=== PATIENT | female | born 1980 | race Caucasian/White ===

== ENCOUNTER 2023-04-14 18:00 | Emergency (ER) | payer BC, SELFPAY ==
[2023-04-14 18:04] VITALS: BP 185/146
[2023-04-14 18:07] VITALS: BMI 26.5
--- NOTE | 2023-04-14 18:48 | ED.GENMED ---
History of Present Illness
General
Chief Complaint: Eye Problems
Source: patient
Time Seen by Provider: 04/14/23 18:22
Travel History
Have you had any contact with someone who has COVID-19?: No
Do you have any symptoms of coronavirus? Fever > 100 degrees, chills, cough, shortness of breath, sore throat, loss of taste or smell, muscle aches, or headache?: No
History of Present Illness
History of Present Illness:
42-year-old female presents to the emergency room complaining of redness and discomfort in bilateral eyes. Symptoms been present for the past 4 to 5 days. No fever, chills, sore throat or cough. Patient denies chest pain or shortness of breath.
Past History
Past History
ED Past Medical History: None
ED Past Surgical History: Cardiac and Cholecystectomy
Social History
Tobacco: Non-smoker
Alcohol: None
Drug: None
Personal:
Living: with family
Employment: Employed
Family History
Family History: Other (Noncontributory)
Phy Exam
Physical Exam
Physical Exam:
General: Awake, Alert, Oriented X3. No acute distress.
Vitals: unremarkable
Head: Atraumatic
Eyes: Pupils equal, EOMI, mild injection bilaterally, anterior chamber appears normal slit-lamp to exam. No fluorescein uptake.
Neuro: Nonfocal
Skin: Warm, dry, no rash
Extremities: pulses equal b/l, no edema
Course
Vital Signs
Initial and Last Documented VS:
Initial Vital Signs
Temp Pulse Resp BP Pulse Ox
98.8 F 99 20 185/146 97
04/14/23 18:04 04/14/23 18:04 04/14/23 18:04 04/14/23 18:04 04/14/23 18:04
Last Documented Vital Signs
Temp Pulse Resp BP Pulse Ox
98.8 F 99 20 185/146 97
04/14/23 18:04 04/14/23 18:04 04/14/23 18:04 04/14/23 18:04 04/14/23 18:04
MDM/Problems Addressed
Differential Diagnosis Includes:
Viral conjunctivitis, bacterial conjunctivitis, chemical
MDM/Problems Addressed:
Patient has normal exam essentially other than increased injection. Will cover with polymyxin for few days. Patient's blood pressure noted to be quite high. Recommend follow-up with her primary care provider. Patient states has been using
Claritin-D which she knows can increase her blood pressure.
*Pulse Oximetry
Patient hypoxic: no
*Critical Care Note
Total Time (30-74mins, 75-104mins- exclusive of procedures): Not Applicable
ED Attending Note
-
Portions of this chart may have been created with voice recognition software.� Occasional wrong word or��sound alike� substitutions may have occurred due to the inherent limitations of voice recognition software.
Discharge Plan
Departure
Patient Disposition: Home (Routine Discharge)
Date of Disposition: 04/14/23
Time of Disposition: 18:48
Patient with high blood pressure during this ER visit?: Yes
Condition: Good
Discharge Problem:
Conjunctivitis
Instructions: Conjunctivitis ([place]) (DC), BLOOD PRESSURE
Prescriptions:
New
polymyxin B sulf-trimethoprim 10,000 unit- 1 mg/mL drops
1 drp BOTH EYES QID 5 Days Qty: 10 0RF
No Action
loratadine-pseudoephedrine 240 MG/10 MG tablet extended release 24 hr
1 mg PO DAILY
oxycodone-acetaminophen 5 MG/325 MG tablet
1 tab PO Q4HPRN PRN (Reason: moderate to severe pain) Qty: 15 0RF
ondansetron 4 MG tablet,disintegrating
4 mg PO TIDPRN PRN (Reason: nausea) Qty: 7 0RF
Referrals:
Tammie Cheng CRNP [Family Provider] -
Interventions
Interventions:
*Risk Screen - Suicide Last Done: 04/14/23 18:07
*Neglect/Abuse Screening Last Done: 04/14/23 18:07
*ED COVID-19 Vaccine History Last Done: 04/14/23 18:07
[2023-04-14 18:54] VITALS: BP 179/104
== END 2023-04-14 19:42 | disposition home or self-care (01) ==
LOC: EMR 18:00
PROVIDERS: EMERGENCY PHYSICIAN Emergency Medicine; FAMILY PHYSICIAN Nurse Practitioner Family
DX: B30.9 Viral conjunctivitis, unspecified (principal); R03.0 Elevated blood-pressure reading, without diagnosis of hypertension
CPT/HCPCS: 99283

== ENCOUNTER 2023-04-18 18:56 | Inpatient (IN) | payer BC, SELFPAY ==
[2023-04-18] VITALS (11 sets, daily range): BP systolic 108–216; BP diastolic 70–135; BMI 26.0
[2023-04-18 17:30] LABS: % Eosinophils 1.4 % (0-6); % Immature Granulocytes 0.4 % (0-0.5); % Lymphocytes 24.1 % (20.5-51.1); % Monocytes 5.8 % (1.7-9.3); % Neutrophils 67.3 % (42.2-75.2); Absolute Basophils 0.1 10^3/uL (0-0.2); Absolute Eosinophils 0.1 10^3/uL (0-0.7); Absolute Lymphocytes 1.8 10^3/uL (1.2-3.4); Absolute Monocytes 0.4 10^3/uL (0.1-0.6); Absolute Neutrophils 4.9 10^3/uL (1.4-6.5); Hematocrit 44.1 % (37.0-47.0); Hemoglobin 14.9 g/dL (12.0-16.0); Mean Corp Hgb Conc. 33.8 g/dL (33.0-37.0); Mean Corpuscular Hgb 25.8 pg (27.0-31.0); Mean Corpuscular Volume 76.4 fL (81.0-99.0); Mean Platelet Volume 8.6 fL (7.4-10.4); Nucleated Red Blood Cells % 0 %; Platelet Count 297 10^3/uL (130-400); Red Blood Cell Count 5.77 10^6/uL (4.20-5.40); Red Cell Dist. Width 13.8 % (11.5-14.5); White Blood Cell Count 7.3 10^3/uL (4.8-10.8)
[2023-04-18 17:44] LABS: HCG, Serum Qualitative Screen Negative
[2023-04-18 17:49] LABS: ALT (SGPT) 16 U/L (0-35); AST (SGOT) 22 U/L (14-36); Albumin 4.4 g/dl (3.5-5.0); Alkaline Phosphatase 95 U/L (38-126); Blood Urea Nitrogen 14 mg/dl (7-17); Calcium 9.8 mg/dl (8.4-10.2); Carbon Dioxide 26 mmol/L (22-30); Chloride 99 mmol/L (98-107); Glucose 122 mg/dl (70-99); Potassium 3.8 mmol/L (3.5-5.1); Sodium 133 mmol/L (135-145); Total Bilirubin 0.7 mg/dl (0.2-1.3); Total Protein 7.2 g/dl (6.3-8.2); eGFR > 60.00
--- NOTE | 2023-04-18 17:49 | ED.GENMED ---
History of Present Illness
General
Chief Complaint: Heart Rate Problem
Source: patient
Exam Limitations: none
Time Seen by Provider: 04/18/23 17:08
Travel History
Have you had any contact with someone who has COVID-19?: No
Do you have any symptoms of coronavirus? Fever > 100 degrees, chills, cough, shortness of breath, sore throat, loss of taste or smell, muscle aches, or headache?: No
History of Present Illness
History of Present Illness:
42-year-old female complaining of heart pounding racing. Started today. No neurologic symptoms no headache no chest pain or shortness of breath. Started amlodipine yesterday.
Past History
Past History
ED Past Medical History: HTN
ED Past Surgical History: Cardiac and Cholecystectomy
Social History
Tobacco: Non-smoker
Alcohol: None
Drug: None
Personal:
Living: with family
Employment: Employed
Family History
Family History: Other (Noncontributory)
Review of Systems
Review of Systems
All Other Systems: Not applicable
Constitutional: Denies fever
Respiratory: Reports no symptoms
Cardiac: Reports no symptoms
ABD/GI: Reports no symptoms
Phy Exam
Physical Exam
Physical Exam:
GENERAL: Alert and oriented in no apparent distress
EYE: Orbits normal.
NECK: Supple, no thyroid palpable
CARDIAC: Tachycardic and regular no murmur
LUNGS: Clear breath sounds,normal
ABDOMEN: Soft, without focal tenderness or distention
NEUROLOGICAL: Alert and oriented , grossly non-focal
SKIN: Warm and dry, no rash or lesion, no discoloration, skin intact.
MUSCULOSKELETAL: No edema,no deformity.Good color
PSYCH: Normal and appropriate interaction.
Course
Orders/Labs/Results
Orders:
Orders
02/19/24 Dinner
Regular
At Your Request: Full Participation
04/18/23 16:50
Electrocardiogram (*1) Urgent
Reason for Study: Tachycardia
EKG- Treatment ONCE
04/18/23 17:18
Cardiac Monitoring- Treatment ONCE
Test Result ONCE
04/18/23 17:22
Complete Blood Count/With Diff Urgent
Comprehensive Metabolic Panel Urgent
D-Dimer Urgent
HCG, Serum Qualitative Screen Urgent
TSH Reflex To Free T4 Urgent
Troponin I Urgent
04/18/23 17:49
Labetalol HCl [Trandate] 10 mg IV NOW STA
04/18/23 18:21
Urine, Metanephrines [Metanephrines Fractionated, Ur] [S] Routine
US Renal Artery Routine
Comment:
Reason For Exam: HTN urgency
04/18/23 18:23
Urine Drug Abuse Screen Routine
04/18/23 18:28
Aldosterone/Renin Act Ratio [S] Routine
Catecholamine Fraction Plasma [S] Routine
Metanephrines, Plasma (free) [S] Routine
04/18/23 18:32
Labetalol HCl [Trandate] 20 mg IV NOW STA
04/18/23 18:40
Amlodipine [Norvasc] 5 mg PO NOW STA
04/18/23 18:41
Admit/Transfer Patient As Directed
Co-Sign Provider:
Level of Care: Inpatient admission
Assign to:: Telemetry
Physician / Group: herb gonzales
Diagnosis: htn urgency
Reason for Telemetry: Arrhythmia
Date to Stop Telemetry: 04/21/23
Time to Stop Telemetry: 11:00
Reason for Hospitalization: htn urgency
Expected length of stay greater than two midnights?: Yes
ELOS- Estimated Length of Stay in days: 3
I certify the patient meets the requirements for IP care: Yes
HydrALAZINE [Apresoline] 10 mg IV Q6HPRN PRN
04/18/23 18:42
Code Status As Directed
Resuscitation Status: Full Code
04/18/23 19:35
Artificial Tears (Pf) [Refresh Eye Drops (Pf)] 1 drops BOTH EYES DAILYPRN PRN
04/18/23 19:42
Acetaminophen [Tylenol] 650 mg PO Q4HPRN PRN
04/18/23 19:42
Activity As Directed
Activity Level: As Tolerated
Pneumatic Compression Sleeves As Directed
Type: Knee high
Vital Signs As Directed
Frequency: Per unit guidelines
Ot Eval And Treat Routine
Pt Eval And Treat Routine
Activity Level: As Tolerated
DX Deep Vein Thrombosis Video Routine
04/19/23 06:00
Basic Metabolic Panel IN AM
Cardiovascular Evaluation IN AM
Comprehensive Metabolic Panel IN AM
04/19/23 08:00
Catecholamine Fraction Free, Urine [Catecholamine Fraction Free,Ur] [S] Routine
Amlodipine [Norvasc] 10 mg PO DAILY
04/21/23 11:00
DC Protocol for Telemetry ONCE
Abnormal Lab Results
04/18/23
17:22
RBC 5.77 H 10^6/uL
(4.20-5.40)
MCV 76.4 L fL
(81.0-99.0)
MCH 25.8 L pg
(27.0-31.0)
Sodium 133 L mmol/L
(135-145)
Glucose 122 H mg/dl
(70-99)
04/18/23 17:22
04/18/23 17:22
Vital Signs
Initial and Last Documented VS:
Initial Vital Signs
Temp Pulse Resp BP Pulse Ox
98.1 F 143 20 216/135 97
04/18/23 16:52 04/18/23 16:52 04/18/23 16:52 04/18/23 16:52 04/18/23 16:52
Last Documented Vital Signs
Temp Pulse Resp BP Pulse Ox
98.1 F 92 18 193/126 99
04/18/23 19:42 04/18/23 19:42 04/18/23 19:42 04/18/23 19:42 04/18/23 19:42
*Pulse Oximetry
Patient hypoxic: no
*EKG
Interpreted by ED Provider?: Yes
Interpretation: abnormal
Comparison EKG: no comparison EKG present
Heart Rate: 126
Rate: tachycardiac
Rhythm: sinus
[place]: normal axis
Interval: normal interval
QRS Pattern: normal QRS
Ischemia: no ischemia
*Grocery Shopper Interpretation
Rate: tachycardiac
Interpretation: abnormal
Heart Rate: 122
Rhythm: sinus
*Critical Care Note
Total Time (30-74mins, 75-104mins- exclusive of procedures): 15
Update Note
Update Note:
1750...Blood pressure 220/135. Still tacky at 110. Will give a dose of labetalol
No serious etiology found for patient's significant hypertension.
ED Attending Note
-
Portions of this chart may have been created with voice recognition software.� Occasional wrong word or��sound alike� substitutions may have occurred due to the inherent limitations of voice recognition software.
Discharge Plan
Departure
Patient Disposition: Admit
Date of Disposition: 04/18/23
Time of Disposition: 18:27
Presentation/result/management discussed w/ accepting MD/DO: Hospitalist
Discharge Problem:
Hypertensive urgency
Interventions
Interventions:
*Risk Screen - Suicide Last Done: 04/18/23 16:52
*General Assessment Last Done: 04/18/23 16:52
*Neglect/Abuse Screening Last Done: 04/18/23 16:52
ED- Fall Risk Assessment Last Done: 04/18/23 19:27
*ED COVID-19 Vaccine History Last Done: 04/18/23 16:52
*Nursing Disposition Last Done: 04/18/23 19:27
ED- Cardiac Assessment Last Done: 04/18/23 17:25
ED- Pulmonary Assessment Last Done: 04/18/23 17:25
Discharge Date and Time
Discharge Date/Time: 04/18/23 19:28
[2023-04-18 17:54] LABS: Troponin I < 0.012 ng/ml
[2023-04-18 17:57] LABS: D-Dimer < 0.27 ug/mlFEU (0.00-0.50)
[2023-04-18] MEDS: TRANDATE 10 MG IV (18:11)
[2023-04-18 18:18] LABS: TSH Reflex To Free T4 2.02 uIU/ml (0.47-4.68)
--- NOTE | 2023-04-18 18:34 | HPS.HSE ---
Addendum entered and electronically signed by Brianna Helms MD 04/18/23 18:54:
I saw and examined the patient.
The CESSATION SYSTEMS OUTREACH SPECIALIST's note was reviewed and I agree with the note.
Comment:
42-year-old female, past medical history of ASD status post surgery, stroke due to ASD, presented with palpitation and flushing while out shopping. Patient was started with Norvasc 5 mg 2 days prior to admission for hypertension.
A/P:
# Hypertensive urgency
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
s/p IV labetalol in ER
Cont Norvasc, increase to 10 mg daily
Check UDS
Check Renal artery US
Check renin/aldosterone level, urine and plasma metanephrine
Check echo
IV hydralazine 10 mg PRN for SBP >160
# Atrial septal defect with repair 2005 after CVA at [facility]
2D echo
# Seasonal allergies
Hold Claritin-D
DVT prophylaxis: SCDs
Full code
Original Note:
Family Physician
-
Family Physician: Rehan Taylor MD
Chief Complaint
-
Flushed sensation, heart pounding, hypertension
History of Present Illness
42-year-old female who reports she was at [facility] today standing in line when she felt flushed then felt her heart pounding and racing. She denies any headache, blurred vision, chest pain, shortness of breath, cough, abdominal pain, nausea, vomiting,
diarrhea, dizziness, fever, chills, recent illness. She does report she was diagnosed with hypertension 2 days ago and started on amlodipine. She did not miss any doses. She reports she drinks 1 caffeinated drink a week denies any drug use or
smoking. She has past medical history of atrial septal defect with a stroke in 2005 and atrial septal closure December 2005 at [facility], seasonal allergies.
Medical History
Past Medical History
Past Medical History: Reports Other
Additional Past Medical History:
HTN�Dx 04/15/2023
atrial septal defect with a stroke in 2005
atrial septal closure December 2005 at [facility]
seasonal allergies.
Past Surgical History: Reports Other
Additional Past Surgical History:
section x 2
cholecystectomy
tonsillectomy
Social History
Tobacco: Non-smoker
Alcohol: None
Drug: None
Personal:
Living: With Family
Employment: Employed
Family History
Family History: Other (Mother HTN, father CKD stage II, HTN, COPD, CHF)
Allergies / Home Medications
Allergies reflects when Allergies were last updated in [facility].
Home Medications with original date entered in [facility]
Allergy/Medication List:
No known drug allergies
Amlodipine 5 mg daily
Claritin-D once daily
Review of Systems
-
History Source: Patient
A 12 point ROS was completed and negative except as noted: Yes
Constitutional: Denies Fever, Fatigue or Chills
EENT: Denies Sore Throat or Runny Nose
Respiratory: Denies Cough or Trouble Breathing
Cardiac: Reports Palpitations and Other (Flushed sensation); Denies Chest Pain, Diaphoresis or Syncope
Abdomen/GI: Denies Abdominal Pain, Nausea, Vomiting, Diarrhea, Constipated, Bloody Stools or Black Stools
: Denies Dysuria, Frequency, Flank Pain, Incontinence, Difficulty Voiding or Urgency
Musculoskeletal: Denies Joint Pain or Edema
Skin: Denies Itching or Rash
Neurological: Denies Dizzy, Headache, Weakness or Numbness
Endocrine: Reports No Symptoms
Hematologic/Lymphatic: Reports No Symptoms
Psych: Reports Calm
Physical Exam
Vital Signs
Vital Signs
Temp Pulse Resp BP Pulse Ox
98.1 F 99 15 203/130 100
04/18/23 16:52 04/18/23 18:15 04/18/23 18:15 04/18/23 18:00 04/18/23 18:15
Physical Exam
General: Well Developed, Well Nourished, No Apparent Distress, Comfortable and Conversant; No Pain, Fever or Chills
HEENT: NormoCephalic, Anicteric, PERRLA, No Ptosis and Neck Nontender; No Nodules
Respiratory: Clear; No Wheezes, Rales or Rhonchi
Cardiac: S1/S2 and Regular Rhythm; No Tachycardia, Murmur, Rub, Gallop, Peripheral Edema, JVD or Carotid Bruits
Breast: Deferred by me
GI: Soft, Non Tender, Non Distended, Normal Bowel Sounds and No Hepatosplenomegaly
Rectal: Deferred by Provider
Genito-urinary: Deferred by me
Musculoskeletal: No Clubbing, No Cyanosis and No Edema
Skin: Warm and Dry; No Rash or Jaundice
Neuro: AO x 3, No Motor Deficits, Nonfocal/grossly intact, Cranial Nerves Intact and No Sensory Deficits; No Slurred Speech, Facial Droop, Tremors or Sedated
Psych: Calm
Laboratory Results
-
04/18/23 17:22
04/18/23 17:22
Laboratory Results
Total Bilirubin 0.7 mg/dl (0.2-1.3) 04/18/23 17:22
AST 22 U/L (14-36) 04/18/23 17:22
ALT 16 U/L (0-35) 04/18/23 17:22
Alkaline Phosphatase 95 U/L (38-126) 04/18/23 17:22
Troponin I < 0.012 ng/ml 04/18/23 17:22
Impression/Plan
-
Impression/plan:
Admit to telemetry
#Hypertensive urgency
#Recent HTN Dx 2 days ago started amlodipine
216/135
-IV labetalol 10 mg given in ER
-Check UDS
- check Renal u/s
-Give additional Norvasc 5 mg now
- Start norvasc at 10 mg daily Vs prior 5 mg
-iv hydralazine prn 10 mg SBP>160
#Atrial septal defect with repair 2005 after CVA at [facility]
-Check 2 decho
#Seasonal allergies
-Hold Claritin-D
DVT prophylaxis
SCDs
Full code
[2023-04-18] MEDS: TRANDATE 20 MG IV (18:39)
[2023-04-18] MEDS: NORVASC 5 MG PO (20:03)
--- NOTE | 2023-04-18 20:30 | PTCARENOTE ---
Received patient from ED into 2138. Patient ambulatory. AAOx3 - answered all admission questions. BP 193/126 HR 92. Scheduled Norvasc 10mg ordered and given. Reports feeling like 'a brick on my head' after taking Norvasc yesterday 04/17 (according to
pt started Norvasc yesterday). LYE BOILER aware. Patient asymptomatic, reports no pain, and is resting comfortably in bed.
[2023-04-18] MEDS: APRESOLINE 10 MG IV (21:57)
--- NOTE | 2023-04-19 | PTCARENOTE ---
Patient BP on arrival to unit at about 1999, 193/126. Scheduled Norvasc 10mg PO ordered and given. Recheck of BP 164/108. PRN dose of IV 10mg hydralazine given. Recheck BP of 108/70. After walking to the bathroom, patient reports feeling
lightheaded, N/V, and 'sweaty without sweating.' FLAP MAKER aware. BP 116/80. Only felt this way for a few minutes before pt stated it began to pass. Patient resting comfortably in bed, safe environment maintained, call hurley within reach.
[2023-04-19 03:41] VITALS: BP 145/90
[2023-04-19 05:24] LABS: ALT (SGPT) 17 U/L (0-35); AST (SGOT) 23 U/L (14-36); Albumin 4.3 g/dl (3.5-5.0); Alkaline Phosphatase 107 U/L (38-126); Blood Urea Nitrogen 12 mg/dl (7-17); Calcium 9.2 mg/dl (8.4-10.2); Carbon Dioxide 21 mmol/L (22-30); Chloride 105 mmol/L (98-107); Estimated Creatinine Clearance 71 ml/min; Glucose 116 mg/dl (70-99); HDL Cholesterol 69 mg/dl; LDL Cholesterol, Calculated 145 mg/dl; Potassium 4.2 mmol/L (3.5-5.1); Sodium 134 mmol/L (135-145); Total Bilirubin 0.7 mg/dl (0.2-1.3); Total Cholesterol 228 mg/dl (50-199); Triglyceride 71 mg/dl (10-149); Very Low Density Lipoprotein 14 mg/dl (0-30); eGFR > 60.00
[2023-04-19 07:09] VITALS: BP 139/93
[2023-04-19] MEDS: NORVASC 10 MG PO (08:58)
--- NOTE | 2023-04-19 09:33 | PTOTSP ---
Therapist spoke with the patient, who noted there have been no changes in her mobility (was out shopping when symptoms started) and has remained independent, PT evaluation not warranted. Patient is aware our services are available if needs/changes
occur. PT will sign off at this time.
[2023-04-19 11:09] LABS: Amphetamines Negative (Negative); Barbiturates Negative (Negative); Benzodiazepines Negative (Negative); Buprenorphine Negative (Negative); Cocaine Negative (Negative); Marijuana Negative (Negative); Methadone Negative (Negative); Methamphetamines Negative (Negative); Opiates Negative (Negative); Phencyclidine Negative (Negative); Tricyclic Antidepressants Negative (Negative)
[2023-04-19 11:20] VITALS: BP 159/99
--- NOTE | 2023-04-19 11:41 | W.PN.HOSP.TC ---
Addendum entered and electronically signed by Brianna Helms MD 04/19/23 13:18:
Total DC time 35 minutes
Original Note:
Today's Communication/Plan
-
see A/P
Assessment / Plan
Assessment / Plan
HPI: 42-year-old female, past medical history of ASD status post surgery, stroke due to ASD, presented with palpitation and flushing while out shopping.� Patient was started with Norvasc 5 mg 2 days prior to admission for hypertension.
A/P:
# Hypertensive urgency
s/p IV labetalol in ER
cont TASSEL MAKER Norvasc change to 10 mg daily, add hydralazine 10 mg for SBP > 160
UDS negative
TSH WNL at 2.02
Renal artery US neg for renal arterial stenosis on either side.
Follow renin/aldosterone level, urine and plasma metanephrine, catecholamine results with PCP outpt
Echo unrevealing: Normal left ventricular systolic function. EF 65-70%. Normal diastolic function.�No significant valvular pathology
IV hydralazine 10 mg PRN for SBP >160
# Atrial septal defect with repair 2005 after CVA at [facility]
2D echo as above
# Seasonal allergies
Hold Claritin-D
DVT prophylaxis: SCDs
Full code
DW mother at bedside
Anticipated Discharge: Today
Subjective/Interval History
-
Date of Service: April 19, 2023
Objective Data
-
Labs:
Laboratory Results
04/19/23
04:33
Sodium 134 L
Potassium 4.2
Chloride 105
Carbon Dioxide 21 L
BUN 12
Creatinine 0.8
Glucose 116 H
Calcium 9.2
Total Bilirubin 0.7
AST 23
ALT 17
Alkaline Phosphatase 107
Vital Signs:
Vital Signs
Temp Pulse Resp BP Pulse Ox
36.8 C 98 18 139/93 98
04/19/23 07:09 04/19/23 08:58 04/19/23 07:09 04/19/23 08:58 04/19/23 10:02
I&O
04/18/23 04/19/23 04/20/23
06:59 06:59 06:59
Intake Total 720 / 720
Balance 720 / 720
Review of Systems
-
All other systems: Reviewed and negative
Physical Exam
-
General: Well Developed, Well Nourished, No Apparent Distress, Comfortable and Conversant; Negative Respiratory Distress
HEENT: Normocephalic, Atraumatic, Nose Appears Normal and Ears Appear Normal; Negative Oxygen
Respiratory: Clear to Auscultation and Non Labored Respirations; Negative Accessory Resp Muscle Use
Cardiac: Regular Rhythm and S1/S2
GI: Soft, Nontender, Nondistended and Normal Bowel Sounds
Skin: Warm and Dry
Neuro: Awake, Alert, Oriented, AO x 3 and Nonfocal/Grossly Intact
Psych: Calm and Intact Judgement/Insight
Data Reviewed
-
Ultrasound: Report Reviewed by me, Discussed with Patient and Discussed with Family
Medical Tests (Nuc Med, Echo etc): Report Reviewed by me (echo), Discussed with Patient (echo) and Discussed with Family
Labs: Labs Reviewed by me
--- NOTE | 2023-04-19 11:43 | PTOTSP ---
pt reports no deficits noted regarding UE ROM, strength, vision, ability to complete simple ADLs, ambulation. no acute OT needs identified, will sign off.
--- NOTE | 2023-04-19 12:27 | CM ---
Reviewed the chart notes and spoke with the patient and her mother at the bedside. The patient resides with spouse in a two story home with three steps to enter. The patient reports no DME/VN/SNF. The patient confirmed her pharmacy of choice is
the [facility] [place]. The patient anticipates being discharged to home today with no needs. Patient's spouse will provide transportation. CM continues to be available to patient/family and is monitoring medical plan for needs at
discharge.
Plan: Discharge to home today.
--- NOTE | 2023-04-19 13:11 | W.DCSUMMARY ---
Discharge Summary
Discharge Data
Date of Admission: 04/18/23
Date of Discharge: 04/19/23
-
Pending Results: No
Hospital Course
Principal Diagnosis:
Hypertension urgency
Chronic Diagnoses:�
Atrial septal defect (ASD) status post repair 2005
Stroke due to ASD prior to repair
Seasonal allergies
Consultations:�
None
Procedures:�
None
Clinical course:�
This is a 42-year-old female with past medical history as stated above, who presented with palpitation and flushing while out shopping.�Patient was started with Norvasc 5 mg two days prior to admission for hypertension.
Problem 1:
Hypertensive urgency.
Norvasc was increased from 5 mg to 10 mg which she can continue going forward.
She can also take hydralazine 10 mg as needed for systolic blood pressure more than 160.
Her UDS was negative.
Her TSH was within normal limit at 2.02.
Her Renal artery US was negative for renal arterial stenosis on either side.
Her echo was unrevealing:�Normal left ventricular systolic function. EF 65-70%. Normal diastolic function.�No significant valvular pathology
She underwent secondary hypertensive workup and has been informed to follow-up�renin/aldosterone level, urine and plasma metanephrine, catecholamine results with PCP outpt.
As for the rest of her medical problems, they were stable during her hospital stay.
Discharge Plan
-
Patient Disposition: Home (Routine Discharge)
Discharge Diagnosis/Procedures: Hypertension urgency
Condition: Good
Diet: As tolerated and Low Sodium
Activity: As tolerated
Driving Restrictions: As prior to admission
Activity Restrictions/Additional Instructions:
Take Norvasc 10 mg daily.
In addition, take hydralazine 10 mg as needed if your systolic blood pressure is higher than 160.
Follow up results with your PCP outpatient:
Renin/aldosterone level, renin/aldosterone ratio, plasma metanephrine, plasma norepinephrine, epinephrine, dopamine level, urine metanephrine and catecholamine
Referrals:
Rehan Taylor MD [Family Provider] - in less than 1 week
Prescriptions:
New
amlodipine 10 mg Tablet
10 mg PO DAILY Qty: 30 0RF
hydralazine 10 mg tablet
10 mg PO TID PRN (Reason: SBP > 160) Qty: 90 0RF
Continued
Claritin-D 24 Hour 10-240 mg Tablet Extended Release 24 Hr
1 tab PO DAILY
naproxen sodium [Aleve] 220 mg Tablet
220 mg PO DAILYPRN PRN (Reason: mild pain)
ibuprofen [Motrin IB] 200 mg Tablet
200 mg PO DAILYPRN PRN (Reason: mild pain)
Clear Eyes
1 drp BOTH EYES DAILYPRN PRN (Reason: dry eyes)
polymyxin B sulf-trimethoprim 10,000 unit- 1 mg/mL drops
1 drp BOTH EYES QID
Patient Comments:
04/18/2023, pt. filled this med. on 04/14/2023 and is instructed to apply 1 drop to both eyes QID for 5 days. Per pt. her last day of use is tomorrow (04/19/2023).
Discontinued
amlodipine 5 mg Tablet
5 mg PO HS
Discharge Orders:
Discharge Patient (As Directed); Ordered 04/19/23
Ordered By: Brianna Helms
--- NOTE | 2023-04-19 15:27 | PTCARENOTE ---
Patient discharged home with no needs. This RN removed patient's IV and telemetry pack, reviewed discharge instructions with patient and family member and both verbalized understanding. Patient dressed and belongings gathered in room, taken down to
family member's vehicle at main lobby via staff escort and wheelchair.
[2023-04-22 13:26] LABS: Aldosterone, Serum 9.1 ng/dL; Aldosterone/Renin Activ Ratio 11.3 ratio (<=25.0); Renin Activity Results 0.8 ng/mL/hr
[2023-04-23 02:09] LABS: 24 Hour Urine Total Volume Random mL; Creatinine, Urine per Volume 69 mg/dL; Metanephrine, Urine 68 ug/L; Metanephrine/Creatinine Ratio 99 ug/g CRT (0-300); Normetanephrine, Urine 424 ug/L; Normetanephrine/Creatinine Rat 614 ug/g CRT (0-400); Urine Collection Length Random hr
[2023-04-23 18:59] LABS: 24 Hour Urine Total Volume Random mL; Creatinine, Urine per Volume 66 mg/dL; Dopamine, Urine 103 ug/L; Dopamine/Creatinine Ratio 156 ug/g CRT (0-250); Epinephrine, Urine 7 ug/L; Epinephrine/Creatinine Ratio 11 ug/g CRT (0-20); Norepinephrine, Urine 61 ug/L; Norepinephrine/Creatinine Rat 92 ug/g CRT (0-45); Urine Collection Length Random hr
== END 2023-04-19 15:45 | disposition home or self-care (01) | DRG 305 ==
LOC: 2 NORTH 18:56
PROVIDERS: Clinical Nurse Specialist Family Health; Emergency Medicine; ADMITTING PHYSICIAN Internal Medicine; EMERGENCY PHYSICIAN Emergency Medicine; FAMILY PHYSICIAN Family Medicine
DX: I16.0 Hypertensive urgency (principal); Q21.10 Atrial septal defect, unspecified; I10 Essential (primary) hypertension; Z86.73 Personal history of transient ischemic attack (TIA), and cerebral infarction without residual deficits
CPT/HCPCS: 80053; 80061; 80306; 82088; 82384; 83835; 84244; 84443; 84484; 84703; 85025; 85379; 93005; 93306; 93975; 96374; 99285

== ENCOUNTER 2023-04-28 22:53 | Emergency (ER) | payer BC, SELFPAY ==
[2023-04-28 22:58] VITALS: BP 174/119
[2023-04-28 23:20] VITALS: BP 156/100
[2023-04-28] MEDS: NSS 1000 IV (23:51)
[2023-04-28] MEDS: TRANDATE 10 MG IV (23:53)
[2023-04-29 00:09] VITALS: BP 124/88
[2023-04-29 00:20] LABS: D-Dimer 0.62 ug/mlFEU (0.00-0.50)
[2023-04-29 00:22] LABS: HCG, Serum Qualitative Screen Negative
[2023-04-29 00:29] LABS: ALT (SGPT) 30 U/L (0-35); AST (SGOT) 37 U/L (14-36); Albumin 4.7 g/dl (3.5-5.0); Alkaline Phosphatase 106 U/L (38-126); Blood Urea Nitrogen 30 mg/dl (7-17); Calcium 9.9 mg/dl (8.4-10.2); Carbon Dioxide 34 mmol/L (22-30); Chloride 92 mmol/L (98-107); Glucose 115 mg/dl (70-99); Magnesium 2.3 mg/dl (1.6-2.3); Potassium 3.1 mmol/L (3.5-5.1); Sodium 133 mmol/L (135-145); Total Bilirubin 0.4 mg/dl (0.2-1.3); Total Protein 7.7 g/dl (6.3-8.2); eGFR > 60.00
[2023-04-29 00:30] VITALS: BP 122/92
[2023-04-29 00:31] LABS: Troponin I < 0.012 ng/ml
[2023-04-29 00:35] LABS: % Basophils 1.3 % (0-2); % Eosinophils 1.7 % (0-6); % Immature Granulocytes 0.7 % (0-0.5); % Lymphocytes 28.1 % (20.5-51.1); % Monocytes 7.7 % (1.7-9.3); % Neutrophils 60.5 % (42.2-75.2); Absolute Basophils 0.1 10^3/uL (0-0.2); Absolute Eosinophils 0.1 10^3/uL (0-0.7); Absolute Immature Granulocytes 0.1 10^3/uL (0-0.05); Absolute Lymphocytes 2.3 10^3/uL (1.2-3.4); Absolute Monocytes 0.6 10^3/uL (0.1-0.6); Absolute Neutrophils 4.9 10^3/uL (1.4-6.5); Hematocrit 42.9 % (37.0-47.0); Hemoglobin 14.3 g/dL (12.0-16.0); Mean Corp Hgb Conc. 33.3 g/dL (33.0-37.0); Mean Corpuscular Hgb 26.1 pg (27.0-31.0); Mean Corpuscular Volume 78.4 fL (81.0-99.0); Mean Platelet Volume 9.3 fL (7.4-10.4); Nucleated Red Blood Cells % 0 %; Platelet Count 326 10^3/uL (130-400); Red Blood Cell Count 5.47 10^6/uL (4.20-5.40); Red Cell Dist. Width 13.3 % (11.5-14.5); White Blood Cell Count 8.2 10^3/uL (4.8-10.8)
[2023-04-29 01:00] VITALS: BP 126/83
--- NOTE | 2023-04-29 01:31 | ED.GENMED ---
History of Present Illness
General
Chief Complaint: Heart Rate Problem
Source: patient
Exam Limitations: none
Time Seen by Provider: 04/28/23 23:23
Nursing documentation reviewed up to this point in time: agreed with
Travel History
Have you had any contact with someone who has COVID-19?: No
Do you have any symptoms of coronavirus? Fever > 100 degrees, chills, cough, shortness of breath, sore throat, loss of taste or smell, muscle aches, or headache?: No
History of Present Illness
History of Present Illness:
42-year-old female with past medical history of hypertension recently diagnosed who presents to the emergency room for evaluation of palpitations and tachycardia. Patient was recently diagnosed with hypertension and was started on amlodipine 5 mg
by her primary doctor; despite this her blood pressure continued to be severely elevated and she presented to the emergency room and was admitted 04/18/2023 until 04/19/2023 for hypertensive urgency and palpitations. While admitted her amlodipine was
increased to 10 mg daily and she was also given a prescription for hydralazine 10 mg as needed for blood pressure over 160. She says that she followed up with her primary doctor after this hospitalization and he also started her on
hydrochlorothiazide 25 mg daily. Her workup while admitted including echocardiogram was unremarkable. She presents today for palpitations which have been an ongoing issue for she says for the past few weeks. She says that the symptoms are rather
persistent and she has had consistent tachycardia as well. She says that today the symptoms seem to bit worse while she was at work and did not seem to be improving; rechecked her blood pressure and it has remained elevated despite her prescribed
antihypertensives. She came back to the emergency to be assessed. Denies any chest pain. She denies any shortness of breath or decreased exercise tolerance and in fact says she is feels better with exercise. She denies any other complaints.
Past History
Past History
ED Past Medical History: HTN
ED Past Surgical History: Cardiac and Cholecystectomy
Social History
Tobacco: Non-smoker
Alcohol: None
Drug: None
Personal:
Living: with family
Employment: Employed
Family History
Family History: Other (Noncontributory)
Review of Systems
Review of Systems
All Other Systems: ROS reviewed and negative except as documented in HPI and ROS
Constitutional: Denies fever or chills
Respiratory: Denies trouble breathing
Cardiac: Reports palpitations; Denies chest pain or syncope
ABD/GI: Denies abdominal pain, vomiting or diarrhea
Neurological: Denies headache, weakness or numbness
Phy Exam
Physical Exam
Physical Exam:
General: Awake, alert, oriented x3; no acute distress
Head: Normocephalic, atraumatic
Eyes: Conjunctiva normal, pupils equal round reactive to light bilaterally
Throat: Airway intact, handling secretions
Neck: Trachea midline, supple without meningismus
Lungs: Clear to auscultation bilaterally, no wheezing, rales, rhonchi
Heart: Tachycardia with regular rhythm, no murmurs, gallops, or rubs
Abd: Soft, non distended, nontender
Neuro: Cranial nerves grossly intact, speech fluid
Skin: no rash
Extremities: Warm and well-perfused with good pulses in all extremities and no edema in her extremities
Scores
Heart Failure Risk
Heart Failure Risk Score: Not Applicable
Heart Score for Chest Pain Patients
STEMI patient?: Not applicable
Withdrawal Assessment of Alcohol
Withdrawal Assessment Completed?: Not applicable
Course
Orders/Labs/Results
Orders:
Orders
04/28/23 23:04
ECG [Electrocardiogram (*1)] Urgent
Reason for Study: Tachycardia
Other Reason for Exam: hypertension
Cardiology Consult: Unknown
EKG- Treatment ONCE
04/28/23 23:36
Labetalol HCl [Trandate] 10 mg IV NOW STA
Test Result ONCE
04/28/23 23:37
0.9% Sodium Chloride 1000 ml [Nss] 1,000 ml IV BOLUS
04/28/23 23:52
Complete Blood Count/With Diff Urgent
Comprehensive Metabolic Panel Urgent
D-Dimer Urgent
HCG, Serum Qualitative Screen Urgent
Magnesium Urgent
Metanephrines, Plasma (free) [S] Urgent
Troponin I Urgent
04/29/23 00:12
Electrocardiogram (*1) Urgent
Reason for Study: Chest Pain
EKG- Treatment ONCE
04/29/23 00:33
Potassium Chloride [KCl] 40 meq PO NOW STA
04/29/23 00:51
CT Chest Pe Study Urgent
Comment:
Reason For Exam: unexplained tachycardia, SOB
Abnormal Lab Results
04/28/23
23:52
RBC 5.47 H 10^6/uL
(4.20-5.40)
MCV 78.4 L fL
(81.0-99.0)
MCH 26.1 L pg
(27.0-31.0)
Abs Immat Gran (auto) 0.1 H 10^3/uL
(0-0.05)
Immature Gran % 0.7 H %
(0-0.5)
D-Dimer 0.62 H ug/mlFEU
(0.00-0.50)
Sodium 133 L mmol/L
(135-145)
Potassium 3.1 L mmol/L
(3.5-5.1)
Chloride 92 L mmol/L
(98-107)
Carbon Dioxide 34 H mmol/L
(22-30)
BUN 30 H mg/dl
(7-17)
Glucose 115 H mg/dl
(70-99)
AST 37 H U/L
(14-36)
04/28/23 23:52
04/28/23 23:52
Vital Signs
Initial and Last Documented VS:
Initial Vital Signs
Temp Pulse Resp BP Pulse Ox
37.3 C 120 20 174/119 99
04/28/23 22:58 04/28/23 22:58 04/28/23 22:58 04/28/23 22:58 04/28/23 22:58
Last Documented Vital Signs
Temp Pulse Resp BP Pulse Ox
37.3 C 88 20 126/83 98
04/28/23 22:58 04/29/23 01:00 04/29/23 01:00 04/29/23 01:00 04/29/23 01:00
MDM/Problems Addressed
Differential Diagnosis Includes:
Differential diagnosis for palpitations and tachycardia is wide and includes but not limited to. Inappropriate sinus tachycardia, atrial tachycardia, atrial fibrillation/flutter, thyroid dysfunction, anemia, electrolyte derangement,
myocarditis/pericarditis, pheochromocytoma, pulmonary embolism
MDM/Problems Addressed:
42-year-old female presents for evaluation of persistent palpitations and tachycardia for the past few weeks as well as continued hypertension despite multiple adjustments to her antihypertensive regimen. Hypertensive to 174/119 here with a heart
rate 120. Vital signs otherwise normal. Physical exam as above. Plan to place an IV check labs including a CBC and a CMP, troponin. Had recent thyroid studies which were normal. Will check a D-dimer. Check plasma in reference. EKG reviewed
appears to be sinus tachycardia. Will dose with some labetalol for tachycardia and hypertension. Monitor closely reassess at the above.
After 10 mg of labetalol x 1 blood pressure normalized as did her heart rate. She is feeling bit better. Initial labs reviewed: CBC unremarkable, CMP shows hypokalemia likely related to recent initiation of hydrochlorothiazide�will provide p.o.
repletion is started on a potassium supplement. Troponin negative. Her D-dimer was marginally elevated she was sent for a CTA which was negative for PE. At this point no clear emergent pathology and vital signs normalized patient feeling better.
I think she is reasonable candidate for discharge to follow-up with cardiology outpatient in regards to her tachycardia. Will start on the low-dose beta-anderson as well as a potassium supplement. She will follow-up with her primary doctor for
repeat potassium level. She feels comfortable with this plan. Spoke about return precautions all questions answered.
*Radiology
Radiology exam reviewed: radiology read reviewed
*Pulse Oximetry
Patient hypoxic: no
*EKG
Interpreted by ED Provider?: Yes
Heart Rate: 104
Rate: tachycardiac
Rhythm: sinus tachycardia
[place]: normal axis
Interval: normal interval
QRS Pattern: normal QRS
Ischemia: non-specific ST changes
*Critical Care Note
Total Time (30-74mins, 75-104mins- exclusive of procedures): Not Applicable
Data Reviewed
Review of Other/Old Records Reveals: Labs and Discharge Summary
Source: patient
ED Attending Note
-
Portions of this chart may have been created with voice recognition software.� Occasional wrong word or��sound alike� substitutions may have occurred due to the inherent limitations of voice recognition software.
Discharge Plan
Departure
Patient Disposition: Home (Routine Discharge)
Date of Disposition: 04/29/23
Time of Disposition: 01:45
Patient with high blood pressure during this ER visit?: Yes
Discharge Problem:
Hypertension, Tachycardia, Heart palpitations
Instructions: High Blood Pressure (DC), Palpitations (DC)
Prescriptions:
New
potassium chloride 20 mEq tablet extended release
20 meq PO DAILY Qty: 30 0RF
metoprolol succinate 25 mg tablet extended release 24 hr
12.5 mg PO DAILY Qty: 30 0RF
No Action
ibuprofen [Motrin IB] 200 mg Tablet
200 mg PO DAILYPRN PRN (Reason: mild pain)
Clear Eyes
1 drp BOTH EYES DAILYPRN PRN (Reason: dry eyes)
amlodipine 10 mg Tablet
10 mg PO DAILY Qty: 30 0RF
Referrals:
Rehan Taylor MD [Family Provider] -
Bharat Benavides MD [Active] - Call in 1-3 days for appt
Activity Restrictions/Additional Instructions:
Thank you for visiting the Emergency Department at [facility].
1. Please schedule a follow up appointment as directed. Call first thing tomorrow morning to make an appointment.
2. If indicated, please take your medications as instructed and indicated on discharge paperwork.
3. If any of your symptoms do not improve, or persist, or become more severe within 6-12 hours, please return to the emergency department for further care.
4. Please return to the emergency department if you develop a headache, neck pain/stiffness, fever greater than 100.4F, chest pain, shortness of breath, persistent nausea, vomiting, slurred speech, difficulty walking, numbness/tingling, weakness,
signs of infection or any other symptoms that are worrisome to you.
Please call [phone] if you have any questions.
Interventions
Interventions:
*Risk Screen - Suicide Last Done: 04/28/23 22:58
*General Assessment Last Done: 04/28/23 22:58
*Neglect/Abuse Screening Last Done: 04/28/23 22:58
ED- Fall Risk Assessment Last Done: 04/28/23 22:58
*ED COVID-19 Vaccine History Last Done: 04/28/23 22:58
ED- Cardiac Assessment Last Done: 04/29/23 00:12
ED- Neurological Assessment Last Done: 04/29/23 00:12
ED- Pulmonary Assessment Last Done: 04/29/23 00:12
[2023-04-29 01:40] VITALS: BP 127/89
[2023-04-29] MEDS: KCL 40 MEQ PO (01:52)
== END 2023-04-29 02:10 | disposition home or self-care (01) ==
LOC: EMR 22:53
PROVIDERS: EMERGENCY PHYSICIAN Emergency Medicine; FAMILY PHYSICIAN Family Medicine
DX: R00.0 Tachycardia, unspecified (principal); R00.2 Palpitations; I10 Essential (primary) hypertension
CPT/HCPCS: 99285; 96374; 96361; 71275; 80053; 83735; 83835; 84484; 84703; 85025; 85379; 93005; Q9967